=== PATIENT | female | born 1980 | race Caucasian/White ===

== ENCOUNTER 2021-07-06 10:21 | Emergency (ER) | payer BC ==
[2021-07-06] MEDS ORDERED: predniSONE 20 MG TAB ONE (11:02)
[2021-07-06 11:18] LABS: Anion Gap 14 mmol/L (10-20); BUN (Urea Nitrogen) 7 mg/dL (7.0-18.7); Calc. Creatinine Clearance 0 mL/min (70-130); Calcium 8.6 mg/dL (7.8-10.44); Carbon Dioxide 21 mmol/L (22-29); Chloride 107 mmol/L (98-107); Glucose 104 mg/dL (70-105); Potassium 4.1 mmol/L (3.5-5.1); Sodium 138 mmol/L (136-145)
== END 2021-07-06 11:59 | disposition home or self-care (01) ==
LOC: BURERS 10:21
DX: G62.9 Polyneuropathy, unspecified (principal); I10 Essential (primary) hypertension
CPT/HCPCS: 36415; 80048; J7512

== ENCOUNTER 2021-07-09 23:01 | Emergency (ER) | payer BC ==
[2021-07-09] MEDS ORDERED: Ondansetron PF 4 MG/2 ML Vial ONE (23:45)
[2021-07-09] MEDS ORDERED: Morphine 4 MG/ML VIAL ONE (23:45)
[2021-07-10 00:14] LABS: #Basophils 0.1 thou/uL (0.0-0.2); #Eosinphils 0.1 thou/uL (0.0-0.7); #Lymphocytes 1.9 thou/uL (1.20-3.40); #Monocytes 0.6 thou/uL (0.11-0.59); #Neutrophils 5.6 thou/uL (1.40-6.50); %Basophils 0.6 % (0.0-1.0); %Eosinophils 1.1 % (0.0-10.0); %Lymphocytes 23.5 % (21.0-51.0); %Neutrophils 67.9 % (42.0-75.0); Hemoglobin 13.9 g/dL (12.0-16.0); Mean Corpuscular HGB CONC 33.8 g/dL (32.0-36.0); Mean Corpuscular Volume 94.4 fL (78.0-98.0); Mean Platelet Volume 7.8 fL (7.4-10.4); Platelet Count 345 thou/uL (130-400); RBC Distribution Width 13.2 % (11.5-14.5); Red Blood Cell (RBC) Count 4.34 mill/uL (4.20-5.40); White Blood Cell (WBC) Count 8.3 thou/uL (4.8-10.8)
[2021-07-10 00:38] LABS: ALT (SGPT) 25 U/L (8-55); AST (SGOT) 21 U/L (5-34); Albumin 3.9 g/dL (3.5-5.0); Alkaline Phosphatase 93 U/L (40-110); Anion Gap 19 mmol/L (10-20); BUN (Urea Nitrogen) 10 mg/dL (7.0-18.7); Bilirubin, Total 0.4 mg/dL (0.2-1.2); Calc. Creatinine Clearance 0 mL/min (70-130); Calcium 8.9 mg/dL (7.8-10.44); Carbon Dioxide 20 mmol/L (22-29); Chloride 104 mmol/L (98-107); Globulin 3.5 g/dL (2.4-3.5); Glucose 112 mg/dL (70-105); Potassium 3.7 mmol/L (3.5-5.1); Protein, Total 7.4 g/dL (6.0-8.3); Sodium 139 mmol/L (136-145)
== END 2021-07-10 01:45 | disposition home or self-care (01) ==
LOC: BURERS 23:01
DX: U07.1 COVID-19 (principal); M54.6 Pain in thoracic spine; I10 Essential (primary) hypertension; D49.6 Neoplasm of unspecified behavior of brain; Z79.899 Other long term (current) drug therapy
CPT/HCPCS: 36415; 71045; 80053; 83605; 84484; 85025; 96374; 96375; J2270; J2405

== ENCOUNTER 2021-07-23 09:10 | Emergency (ER) | payer BC ==
[2021-07-23] MEDS ORDERED: traMADol HCl 50 MG TAB ONE (09:58)
== END 2021-07-23 10:03 | disposition home or self-care (01) ==
LOC: BURERS 09:10
DX: S93.401A Sprain of unspecified ligament of right ankle, initial encounter (principal); I10 Essential (primary) hypertension; E03.9 Hypothyroidism, unspecified; Z79.899 Other long term (current) drug therapy; W18.42XA Slipping, tripping and stumbling without falling due to stepping into hole or opening, initial encounter